=== PATIENT | male | born 1950 | race Asian ===

== ENCOUNTER 2018-11-10 00:16 | Inpatient (IN) | payer SELFPAY ==
[2018-11-10] VITALS (48 sets, daily range): BP systolic 74–151; BP diastolic 16–106
[~2018-11-10] VITALS: Ht 165.1 cm; Wt 64.5 kg
[2018-11-10] MEDS ORDERED: ASPIRIN 81MG TABLET ONE (01:04)
[2018-11-10] MEDS ORDERED: ADENOSINE 3 MG/ML 2ML VIAL IV ONE ×4 (01:14→01:19)
[2018-11-10] MEDS ORDERED: ONDANSETRON HCL 4MG/2ML INJ IV STA (01:15)
[2018-11-10] MEDS ORDERED: MIDAZOLAM HCL 2 MG/2 ML VIAL IV ONE (01:15)
[2018-11-10] MEDS ORDERED: SODIUM CHLORIDE 0.9% 1,000 ML IV ONE (01:15)
[2018-11-10] MEDS ORDERED: ASPIRIN 81MG TABLET PO ONE (01:15)
[2018-11-10] MEDS ORDERED: MIDAZOLAM HCL 2 MG/2 ML VIAL ONE (01:24)
[2018-11-10 01:40] LABS: BASOPHILS % 0.5 % (0.0-2.0); EOSINOPHILS % 3.2 % (0.0-5.0); HEMATOCRIT. 41.7 % (42.0-52.0); HEMOGLOBIN. 13.3 g/dL (14.0-18.0); MEAN CORPUSCULAR HEMOGLOBIN 26.4 pg (28.0-32.0); MEAN CORPUSCULAR VOLUME 82.6 fL (80.0-94.0); MEAN PLATELET VOLUME 7.9 fl (7.4-10.4); MONOCYTES % 9.9 % (2.0-8.0); NEUTROPHILS % 68.4 % (40.0-76.0); PLATELET 304 x1000/uL (130-400); RED BLOOD CELL COUNT 5.04 mill/uL (4.7-6.1); RED CELL DISTRIBUTION WIDTH 16.8 % (11.6-14.6)
[2018-11-10 01:45] LABS: CHLORIDE 101 mEq/L (98-107)
[2018-11-10 01:50] LABS: D-DIMER 1.87 mg/L FEU (<0.50); INR 1.6; PROTHROMBIN TIME 15.5 sec (9.1-11.1)
[2018-11-10] MEDS ORDERED: CEFTRIAXONE 1 G PREMIX 50 ML IV ONE (02:00)
[2018-11-10] MEDS ORDERED: AZITHROMYCIN 500 MG in DEXT 5% WATER 250 ML IV ONE (02:00)
[2018-11-10] MEDS ORDERED: ACETAMINOPHEN 325MG TABLET PO PRN (02:45)
[2018-11-10] MEDS ORDERED: ONDANSETRON HCL 4MG/2ML INJ IV PRN (02:45)
[2018-11-10] MEDS ORDERED: IOHEXOL-350 100 ML BOTTLE ONE (03:29)
[2018-11-10 05:38] LABS: CREATINE KINASE MB FRACTION 1.7 ng/mL (0.5-3.6)
[2018-11-10] MEDS ORDERED: HYDROMORPHONE HCL/PF 2MG/ML CPJ IV PRN (05:54)
[2018-11-10] MEDS: ENOXAPARIN 60MG/0.6ML SYR SUBCUT SCH ×2 (06:55→18:38)
[2018-11-10] MEDS ORDERED: DILTIAZEM HCL 5MG/ML 5ML VIAL IV NR (09:45)
[2018-11-10] MEDS ORDERED: ADENOSINE 3 MG/ML 2ML VIAL IV NR (09:45)
[2018-11-10] MEDS ORDERED: DILTIAZEM HCL 5MG/ML 5ML VIAL IV ONE (09:49)
[2018-11-10] MEDS ORDERED: POTASSIUM CHLORIDE 20MEQ TABLET SR PO NR ×2 (10:00→11:15)
[2018-11-10] MEDS ORDERED: MAGNESIUM 1 G PREMIX 100 ML IV NR (10:00)
[2018-11-10] MEDS ORDERED: DIGOXIN 500MCG/2ML AMP IV NR ×3 (10:00→22:00)
[2018-11-10] MEDS ORDERED: DILTIAZEM HCL 5MG/ML 5ML VIAL IV PRN (10:00)
[2018-11-10] MEDS: DILTIAZEM HCL 60MG TABLET PO SCH ×3 (10:18→18:38)
[2018-11-10 10:19] LABS: BG BASE EXCESS -4.2 mmol/L (-2.0-2.0); BG CARBOXYHEMOGLOBIN 0.8 % (0.5-1.5); BG FRACTION INSPIRED OXYGEN 28; BG METHEMOGLOBIN 0.2 % (0.0-1.5); BG OXYGEN SATURATION 94.9 % (92.0-98.5); BG PCO2 29.5 mmHg (35.0-45.0); BG PH 7.427 (7.350-7.450); BG SAMPLE SITE RIGHT BRACHIAL; BG TOTAL HEMOGLOBIN 12.8 g/dL (12.0-18.0); BG VENT MODE NASAL CANNULA
[2018-11-10] MEDS ORDERED: IPRATROPIUM BROMIDE (0.02%) 0.5MG/2.5ML NEB HHN PRN (13:15)
[2018-11-10] MEDS: NICOTINE 21MG PATCH TD SCH ×2 (14:30→14:51)
[2018-11-10] MEDS: METHYLPREDNISOLONE SOD SUCC 40 MG/ML VIAL IV SCH ×2 (14:50→21:52)
[2018-11-10] MEDS ORDERED: IPRATROPIUM BROMIDE (0.02%) 0.5MG/2.5ML NEB HHN SCH (15:00)
[2018-11-10 16:44] LABS: HEMATOCRIT 35.9 % (42.0-52.0); HEMOGLOBIN 11.4 g/dL (14.0-18.0); MEAN CORPUSCULAR HEMOGLOBIN 26.2 pg (28.0-32.0); MEAN CORPUSCULAR VOLUME 82.1 fL (80.0-94.0); PLATELET 270 x1000/uL (130-400); RED BLOOD CELL COUNT 4.37 mill/uL (4.7-6.1); RED CELL DISTRIBUTION WIDTH 16.5 % (11.6-14.6)
[2018-11-10 16:55] LABS: CHLORIDE 104 mEq/L (98-107)
[2018-11-10 17:04] LABS: LDL CHOLESTEROL 89 mg/dL (5-100)
[2018-11-10 17:05] LABS: CREATINE KINASE 65 IU/L (39-308); HDL CHOLESTEROL 25 mg/dL (40-59)
[2018-11-10 17:08] LABS: CREATINE KINASE MB FRACTION 2.1 ng/mL (0.5-3.6)
[2018-11-11] VITALS (38 sets, daily range): BP systolic 85–135; BP diastolic 46–78
[2018-11-11] MEDS: DILTIAZEM HCL 60MG TABLET PO SCH ×5 (00:31→23:58)
[2018-11-11] MEDS: METHYLPREDNISOLONE SOD SUCC 40 MG/ML VIAL IV SCH ×3 (05:31→21:24)
[2018-11-11] MEDS: ENOXAPARIN 60MG/0.6ML SYR SUBCUT SCH ×2 (05:32→18:25)
[2018-11-11 06:44] LABS: BASOPHILS % 0.1 % (0.0-2.0); HEMATOCRIT. 42.2 % (42.0-52.0); HEMOGLOBIN. 13.6 g/dL (14.0-18.0); LYMPHOCYTES % 18.6 % (20.0-50.0); MEAN CORPUSCULAR HEMOGLOBIN 26.2 pg (28.0-32.0); MEAN CORPUSCULAR VOLUME 81.3 fL (80.0-94.0); MEAN PLATELET VOLUME 7.6 fl (7.4-10.4); MONOCYTES % 1.9 % (2.0-8.0); NEUTROPHILS % 79.4 % (40.0-76.0); PLATELET 285 x1000/uL (130-400); RED BLOOD CELL COUNT 5.19 mill/uL (4.7-6.1); RED CELL DISTRIBUTION WIDTH 16.7 % (11.6-14.6)
[2018-11-11 06:50] LABS: CHLORIDE 102 mEq/L (98-107)
[2018-11-11 06:59] LABS: LDL CHOLESTEROL 116 mg/dL (5-100)
[2018-11-11 07:01] LABS: HDL CHOLESTEROL 30 mg/dL (40-59); T4 FREE 1.67 ng/dL (0.76-1.46)
[2018-11-11 08:35] LABS: BG BASE EXCESS -2.4 mmol/L (-2.0-2.0); BG CARBOXYHEMOGLOBIN 0.9 % (0.5-1.5); BG DEOXYHEMOGLOBIN 4.9 % (0.0-5.0); BG FRACTION INSPIRED OXYGEN 28; BG HCO3 ACT 20.2 mmol/L (22.0-26.0); BG METHEMOGLOBIN 0.2 % (0.0-1.5); BG PCO2 28.9 mmHg (35.0-45.0); BG PH 7.463 (7.350-7.450); BG PO2 73.2 mmHg (75.0-100.0); BG SAMPLE SITE RIGHT BRACHIAL; BG TOTAL HEMOGLOBIN 13.1 g/dL (12.0-18.0); BG VENT MODE NASAL CANNULA
[2018-11-11] MEDS: NICOTINE 21MG PATCH TD SCH (09:00)
[2018-11-11] MEDS ORDERED: DEXTROSE 50% WATER 50ML SYRINGE IV PRN (12:30)
[2018-11-11] MEDS: BLOOD SUGAR DIAGNOSTIC STRIP TEST SCH ×3 (13:18→21:25)
[2018-11-11] MEDS: INSULIN LISPRO 100 UNITS/ML SUBCUT SCH ×3 (13:22→21:25)
[2018-11-12] VITALS (13 sets, daily range): BP systolic 98–137; BP diastolic 56–82
[2018-11-12] MEDS: BLOOD SUGAR DIAGNOSTIC STRIP TEST SCH ×4 (06:07→21:00)
[2018-11-12] MEDS: METHYLPREDNISOLONE SOD SUCC 40 MG/ML VIAL IV SCH ×3 (06:09→23:09)
[2018-11-12] MEDS: DILTIAZEM HCL 60MG TABLET PO SCH ×4 (06:10→23:09)
[2018-11-12] MEDS: ENOXAPARIN 60MG/0.6ML SYR SUBCUT SCH ×3 (06:10→19:10)
[2018-11-12] MEDS: INSULIN LISPRO 100 UNITS/ML SUBCUT SCH ×5 (07:20→21:00)
[2018-11-12 08:03] LABS: HEMATOCRIT. 40.4 % (42.0-52.0); HEMOGLOBIN. 12.9 g/dL (14.0-18.0); MEAN CORPUSCULAR HEMOGLOBIN 25.9 pg (28.0-32.0); MEAN PLATELET VOLUME 7.7 fl (7.4-10.4); PLATELET 284 x1000/uL (130-400); RED BLOOD CELL COUNT 4.98 mill/uL (4.7-6.1); RED CELL DISTRIBUTION WIDTH 16.9 % (11.6-14.6)
[2018-11-12 08:27] LABS: CHLORIDE 101 mEq/L (98-107)
[2018-11-12 14:26] LABS: PLATELET ESTIMATE NORMAL
[2018-11-13] VITALS (9 sets, daily range): BP systolic 91–128; BP diastolic 34–78
[2018-11-13] MEDS: DILTIAZEM HCL 60MG TABLET PO SCH ×2 (06:00→13:26)
[2018-11-13] MEDS: BLOOD SUGAR DIAGNOSTIC STRIP TEST SCH ×2 (06:07→12:00)
[2018-11-13 06:13] LABS: INR 1.1; PARTIAL THROMBOPLASTIN TIME 29.7 sec (23.4-31.0); PROTHROMBIN TIME 11.4 sec (9.1-11.1)
[2018-11-13] MEDS: METHYLPREDNISOLONE SOD SUCC 40 MG/ML VIAL IV SCH ×2 (06:16→13:26)
[2018-11-13] MEDS: INSULIN LISPRO 100 UNITS/ML SUBCUT SCH ×2 (07:20→12:20)
== END 2018-11-13 15:05 | disposition home or self-care (01) | DRG 201 ==
LOC: ER 01:50 → CVICU 02:45 → EDBEDREQ 02:47 → EDBEDREQTM 02:47 → CANRESERV 03:15 → ENRESERV 03:15 → 3WST 11-12 00:59
PROVIDERS: ADMIT Hospitalist; ATTEND Hospitalist
PROC: 5A2204Z Restoration of Cardiac Rhythm, Single (ICD-10-PCS; principal; 2018-11-10)
DX: I47.1 Supraventricular tachycardia (principal); J96.00 Acute respiratory failure, unspecified whether with hypoxia or hypercapnia; I21.4 Non-ST elevation (NSTEMI) myocardial infarction; I50.43 Acute on chronic combined systolic (congestive) and diastolic (congestive) heart failure; E87.2 Acidosis; D68.9 Coagulation defect, unspecified; E83.42 Hypomagnesemia; I11.0 Hypertensive heart disease with heart failure; J44.1 Chronic obstructive pulmonary disease with (acute) exacerbation; D50.9 Iron deficiency anemia, unspecified; I42.9 Cardiomyopathy, unspecified; E11.9 Type 2 diabetes mellitus without complications; H91.90 Unspecified hearing loss, unspecified ear; F17.210 Nicotine dependence, cigarettes, uncomplicated
CPT/HCPCS: 36415; 36600; 71045; 71275; 80048; 80061; 82375; 82550; 82553; 82805; 82962; 83036; 83605; 83735; 83880; 84145; 84439; 84443; 84484; 85027; 85379; 87804; 93005; 93306; 93970; 94640; 96365; 96375; 99291; J0153; J0456; J0696; J1160; J1650; J1815; J2250; J2405; J2920; J3475; J3490; J7030; J7060; Q9967